=== PATIENT | female | born 1995 | race American Indian/Alaskan Native ===

== ENCOUNTER 2016-11-19 16:18 | Emergency (ER) | payer MEDICAID, OTHER ==
--- NOTE | 2016-11-19 17:00 | OBHP ---
Datetime: 11/19/2016 16:50 IP Adm Impression: , intrauterine ; No Active Labor IP Adm Impression Other: Back Pain IP Admit Plan: Observation/Evaluation; Discharge home Admit Comment, IP Provider: 21yo with IUP at 31+wks presents here today c/o episodes of backpai n. She denies any contractions, VB or LOF. She also denies dysuria or frequency as well as fever or c hills. She gets care from [facility] [place]. [place]- None, FHR- Category 1 , Cx- 0/0/-3 Assessment: IUP at 31wks Backpain Plan: UA Back Exercises advised, Tylenol OTC if severe. D/C home if UA is negatve. F/U with [facility] on Tuesday. Pelvic Type - PN: Adequate Extremities - PN: Normal Abdomen - PN: Normal Lungs - PN: Normal Heart - PN: Normal General - PN: Normal Presentation-Admit: Vertex FHR - Baseline A Provider: 150 Membranes, Provider: Intact Comments, ACOG Physical Exam: Abd; Soft, NT, BS- present Some mild tenderness along the waitline on the right side , No costovertebral angle tenderness. Gestation - Est Wks by US: 31.5 EGA AdmitDate IP: 31.5 Vital Signs Provider: Reviewed IP Chief Complaint: Maternal discomfort NICHD Variability Prov Fetus A: Moderate 6-25bpm NICHD Accel Fetus A IP Provider: 15X15 FHR Category Provider Fetus A: Category I NICHD Decel Fetus A IP Provider: None Dilatation, Provider: 0 Effacement, Provider: 0 Station, Provider: -3 Genitourinary Exam: Normal
[2016-11-19] MEDS ORDERED: Lactated Ringer's 1,000 ML IV ONE (17:09)
[2016-11-19 17:16] LABS: RBC URINE 1 /hpf (0-3); TRANSITIONAL EPITHIAL < 1 /hpf (0-3); URINE BACTERIA RARE (<OCC); URINE BILIRUBIN NEGATIVE (NEGATIVE); URINE BLOOD NEGATIVE (NEGATIVE); URINE COLOR Yellow (YELLOW); URINE GLUCOSE (UA) NORMAL (Normal); URINE KETONE NEGATIVE (NEGATIVE); URINE LEUKOCYTE ESTERASE NEG Leu/uL (Negative); URINE PROTEIN NEGATIVE (NEGATIVE); URINE UROBILINOGEN NORMAL mg/dL (0.2-1.0); WBC URINE 3 /hpf (0-5)
[2016-11-19 17:37] LABS: CHLORIDE 107 mmol/L (98-107); POTASSIUM 3.7 mmol/L (3.6-5.2); SODIUM 138 mmol/L (132-148)
[2016-11-19 17:39] LABS: GFR AFRICAN-AMERICAN > 60
[2016-11-19 17:40] LABS: ALB/GLOB RATIO 1.1 (1.0-2.1); ALKALINE PHOSPHATASE 99 U/L (38-126); ALT/SGPT 16 U/L (9-52); AST/SGOT 21 U/L (14-36); BILIRUBIN,TOTAL 0.5 mg/dL (0.2-1.3); BLOOD UREA NITROGEN 5 mg/dL (7-17); CALCIUM 8.7 mg/dl (8.6-10.4); CARBON DIOXIDE 23 mmol/L (22-30); GLUCOSE,RANDOM 91 mg/dL (65-105); TOTAL PROTEIN 6.9 g/dL (6.3-8.3)
[2016-11-19 18:31] LABS: AMYLASE 107 U/L (30-110)
[2016-11-19 18:44] VITALS: TEMP 99
== END 2016-11-19 18:39 | disposition home or self-care (01) ==
LOC: C.EROB 16:18
DX: O26.893 Other specified pregnancy related conditions, third trimester (principal); M54.9 Dorsalgia, unspecified; Z3A.31 31 weeks gestation of pregnancy
CPT/HCPCS: 80053; 81001; 82150; 83690; 99282; J7120

== ENCOUNTER 2017-02-03 21:33 | Emergency (ER) | payer OTHER ==
[2017-02-03 22:17] VITALS: RESP 18
[2017-02-03] MEDS ORDERED: Sodium Chloride 0.9% 1,000 ML IV ONE (22:18)
--- NOTE | 2017-02-03 22:18 | C.PDOC ---
History Of Present Illness Patient presents with abdominal pain. Pt is 4 weeks post . Was seen at [facility] and was told she has a vaginal infection and was given a course of unknown antibiotics for 10 days. Pt finished the course and still has abdominal discomfort. No fever, chills, nausea or vomiting. Not breast feeding. Time Seen by Provider: 02/03/17 22:18 Chief Complaint (Nursing): Abdominal Pain History Per: Patient History/Exam Limitations: no limitations Onset/Duration Of Symptoms: Days Current Symptoms Are (Timing): Still Present Context: Other Severity: Moderate Pain Scale Rating Of: 4 Location Of Pain/Discomfort: RLQ Radiation Of Pain To:: None Quality Of Discomfort: Dull, Cramping Associated Symptoms: denies: Fever, Chills, Nausea, Vomiting Exacerbating Factors: None Alleviating Factors: None Last Bowel Movement: Today Recent travel outside of the [place]: No Additional History Per: Patient Abnormal Vaginal Bleeding: No Past Medical History Reviewed: Historical Data, Nursing Documentation, Vital Signs Vital Signs: Last Vital Signs Temp 98.4 F 02/04/17 00:10 Pulse 62 02/04/17 00:10 Resp 18 02/04/17 00:10 BP 150/108 H 02/04/17 00:10 Pulse Ox 100 02/04/17 00:10 - Medical History PMH: Pneumonia Family History: States: No Known Family Hx - Social History Hx Tobacco Use: No Hx Alcohol Use: No Hx Substance Use: No - Immunization History Hx Tetanus Toxoid Vaccination: No Hx Influenza Vaccination: No Hx Pneumococcal Vaccination: No Review Of Systems Constitutional: Negative for: Fever, Chills ENT: Negative for: Throat Pain Cardiovascular: Negative for: Chest Pain Respiratory: Negative for: Shortness of Breath Gastrointestinal: Positive for: Abdominal Pain. Negative for: Nausea, Vomiting , Constipation Genitourinary: Negative for: Dysuria Musculoskeletal: Negative for: Back Pain Skin: Negative for: Rash, Lesions Neurological: Negative for: Weakness Psych: Negative for: Anxiety Physical Exam - Physical Exam Appears: Non-toxic Skin: Warm, Dry Head: Normacephalic Eye(s): bilateral: Normal Inspection Oral Mucosa: Moist Neck: Supple Chest: Symmetrical Cardiovascular: Rhythm Regular Respiratory: No Rales, No Rhonchi, No Wheezing Gastrointestinal/Abdominal: Soft, Tenderness (rlq), No Distention, No Guarding, No Rebound Back: No CVA Tenderness Extremity: No Tenderness Extremity: Bilateral: Atraumatic, Normal Color And Temperature Pulses: Left Dorsalis Pedis: Normal, Right Dorsalis Pedis: Normal Neurological/Psych: Oriented x3, Normal Speech, Normal Cognition Gait: Steady ED Course And Treatment - Laboratory Results Result Diagrams: 02/03/17 22:47 02/03/17 22:47 O2 Sat by Pulse Oximetry: 96 Pulse Ox Interpretation: Normal Reevaluation Time: 01:42 Reassessment Condition: Improved Medical Decision Making Medical Decision Making: Upon provider reevaluation patient is feeling better, is medically stable, and requires no further treatment in the ED at this time. Patient will be discharged home with Rx for macrobid . Counseling was provided and all questions were answered regarding diagnosis and need for follow up with dr grey. There is agreement to discharge plan. Return if symptoms persist or worsen. Disposition Counseled Patient/Family Regarding: Studies Performed, Diagnosis, Need For Followup, Rx Given - Disposition Referrals: Jhonatan Shin MD [Medical Doctor] - Disposition: HOME/ ROUTINE Disposition Time: 22:18 Condition: FAIR Prescriptions: Nitrofurantoin Macrocrystals [Macrobid] 1 cap PO BID #14 cap Instructions: Urinary Tract Infection in Women (DC) Forms: [email or web address] (Dominican) - Clinical Impression Clinical Impression: UTI (urinary tract infection)
[2017-02-03] MEDS ORDERED: Sodium Chloride 0.9% 1,000 ML ONE (22:40)
[2017-02-03 22:49] LABS: VENOUS BLOOD GAS PCO2 47 mmHg (40-60); VENOUS BLOOD PH 7.38 (7.32-7.43)
[2017-02-03 22:56] LABS: BASO % 0.5 % (0.0-2.0); EOS # 0.3 K/uL (0.0-0.7); EOS % 3.7 % (0.0-4.0); HEMATOCRIT 34.9 % (34.0-47.0); LYMPH # 2.1 K/uL (1.0-4.3); LYMPH % 29.9 % (20.0-40.0); MEAN CELL VOLUME 83.6 fL (81.0-99.0); MEAN CORPUSCULAR HEMOGLOBIN 26.5 pg (27.0-31.0); MEAN CORPUSCULAR HGB CONC 31.7 g/dL (33.0-37.0); MEAN PLATELET VOLUME 10.2 fL (7.2-11.7); MONO # 0.4 K/uL (0.0-0.8); MONO % 5.2 % (0.0-10.0); RED CELL DISTRIBUTION WIDTH 14.7 % (11.5-14.5)
[2017-02-03 22:59] LABS: CHLORIDE 104 mmol/L (98-107); RBC URINE 2 /hpf (0-3); URINE BILIRUBIN NEGATIVE (NEGATIVE); URINE BLOOD 1+ (NEGATIVE); URINE COLOR Yellow (YELLOW); URINE GLUCOSE (UA) NORMAL (Normal); URINE KETONE NEGATIVE (NEGATIVE); URINE LEUKOCYTE ESTERASE 3+ Leu/uL (Negative); URINE PROTEIN NEGATIVE (NEGATIVE); URINE UROBILINOGEN NORMAL mg/dL (0.2-1.0); WBC URINE 74 /hpf (0-5)
[2017-02-03 23:00] LABS: POTASSIUM 3.6 mmol/L (3.6-5.2); SODIUM 141 mmol/L (132-148)
[2017-02-03 23:01] LABS: GFR AFRICAN-AMERICAN > 60
[2017-02-03 23:02] LABS: ALB/GLOB RATIO 1.2 (1.0-2.1); ALKALINE PHOSPHATASE 75 U/L (38-126); ALT/SGPT 42 U/L (9-52); AST/SGOT 30 U/L (14-36); BILIRUBIN,TOTAL 0.5 mg/dL (0.2-1.3); BLOOD UREA NITROGEN 5 mg/dL (7-17); CALCIUM 8.4 mg/dl (8.6-10.4); CARBON DIOXIDE 25 mmol/L (22-30); GLUCOSE,RANDOM 89 mg/dL (65-105); TOTAL PROTEIN 6.7 g/dL (6.3-8.3); URINE BACTERIA OCC (<OCC)
[2017-02-03] MEDS ORDERED: Piperacillin/Tazobact 3.375 gm 100 ML IVPB STA (23:06)
[2017-02-03 23:07] LABS: INR 1.1
[2017-02-03] MEDS ORDERED: Piperacillin/Tazobact 3.375 gm 100 ML IVPB ONE (23:45)
--- NOTE | 2017-02-03 23:59 | US ---
EXAM: US Pelvis Complete, Transabdominal EXAM DATE/TIME: 02/03/2017 10:18 PM CLINICAL HISTORY: 21 years old, female; Pain; Abdominal pain; Other: Not specified; Additional info: Abd pain, S/P delivery TECHNIQUE: Real-time transabdominal pelvic ultrasound (complete) with image documentation. COMPARISON: There are no prior studies for comparison. FINDINGS: Uterus: Uterus is anteflexed. The uterus measures approximately 8 x 4.9 x 5.5 cm. Endometrium measures approximately 15 mm in width. There is no endometrial blood flow on color Doppler imaging. Right ovary: Right ovary measures approximately 3.2 x 1.2 x 2.6 cm. There are multiple small follicles. There is intraovarian blood flow. Left ovary: Left ovary measures approximately 3.1 x 1.9 x 2.6 cm. There are multiple small follicles. There is intraovarian blood flow. Free fluid: There is no free fluid. Bladder: Bladder is incompletely distended IMPRESSION: Normal sized uterus; mildly prominent endometrium, no retained products of conception identified; no torsion
[2017-02-04 00:12] VITALS: TEMP 98.4
--- NOTE | 2017-02-04 01:21 | CT ---
EXAM: CT Abdomen and Pelvis Without Intravenous Contrast EXAM DATE/TIME: 02/04/2017 12:13 AM CLINICAL HISTORY: 21 years old, female; Pain; Abdominal pain; Patient HX: 4-27-16. Images sent already; Additional info: R flank pain TECHNIQUE: Axial computed tomography images of the abdomen and pelvis without intravenous contrast. All CT scans at this facility use one or more dose reduction techniques, viz.: automated exposure control; ma/kV adjustment per patient size (including targeted exams where dose is matched to indication; i.e. head); or iterative reconstruction technique. Coronal and sagittal reformatted images were created and reviewed. COMPARISON: CT - ABD PELVIS W/O PO OR IV CONT 10/08/2015 10:35:23 AM FINDINGS: Lower thorax: Heart size is normal. There is minimal scarring at the right base. There is no focal consolidation. ABDOMEN: Liver: unremarkable Gallbladder and bile ducts: unremarkable Pancreas: unremarkable Spleen: unremarkable Adrenals: unremarkable Kidneys and ureters: Kidneys and ureters are unremarkable. There are no renal or ureteral stones. Stomach and bowel: Stomach is partially distended. Rotation is normal. There is no small bowel obstruction. There are mildly distended small bowel loops in the left mid abdomen. Terminal ileum is unremarkable. Visualized portion of the is unremarkable. There is moderate stool in the right colon.Colon is incompletely distended which limits evaluation. Appendix: See stomach and bowel PELVIS: Bladder: Bladder is partially distended. Reproductive: Uterus and adnexa are not evaluated. ABDOMEN and PELVIS: Intraperitoneal space: There is no free air.There is no significant fluid. Bones/joints: There are no acute osseous abnormalities Soft tissues: unremarkable Vasculature: Vascular structures are unremarkable. Lymph nodes: There is no pathologic adenopathy IMPRESSION: No renal or ureteral stones or hydronephrosis; no CT findings of appendicitis; slightly limited evaluation of the abdomen and pelvis due to lack of intervenous contrast, possible mild ileus, no obstruction
[2017-02-04 01:55] VITALS: BP 130/85; PULSE 77; O2SAT 100
== END 2017-02-04 01:55 | disposition home or self-care (01) ==
LOC: C.ER 21:33
DX: N39.0 Urinary tract infection, site not specified (principal)
CPT/HCPCS: 74176; 76856; 80053; 81001; 82803; 83690; 85025; 85610; 85730; 87040; 87086; 96361; 96365; 99285; J2543; J7040

== ENCOUNTER 2017-03-01 22:44 | Emergency (ER) | payer OTHER ==
[2017-03-01 23:25] VITALS: TEMP 98.5
--- NOTE | 2017-03-02 00:03 | C.PDOC ---
History Of Present Illness Patient presents to the ED for evaluation of discomfort to her left lower quadrant inguinal area which began earlier today. Patient denies any recent trauma or heavy lifting as well as fever, chills, dysuria, hematuria, vaginal bleeding. Time Seen by Provider: 03/02/17 00:02 Chief Complaint (Nursing): Abdominal Pain History Per: Patient History/Exam Limitations: no limitations Onset/Duration Of Symptoms: Hrs Current Symptoms Are (Timing): Still Present Severity: Mild Pain Scale Rating Of: 3 Location Of Pain/Discomfort: LLQ Radiation Of Pain To:: Other (left inguinal region ) Quality Of Discomfort: "Pain" Associated Symptoms: denies: Fever, Chills, Urinary Symptoms Exacerbating Factors: None Alleviating Factors: None Last Bowel Movement: Today Recent travel outside of the [place]: No Additional History Per: Patient Abnormal Vaginal Bleeding: No Past Medical History Reviewed: Historical Data, Nursing Documentation, Vital Signs Vital Signs: Last Vital Signs Temp 98.5 F 03/01/17 23:20 Pulse 90 03/01/17 23:20 Resp 16 03/01/17 23:20 BP 126/90 03/01/17 23:20 Pulse Ox 100 03/02/17 00:45 - Medical History PMH: Pneumonia Surgical History: No Surg Hx Family History: States: Unknown Family Hx - Social History Hx Tobacco Use: No Hx Alcohol Use: No Hx Substance Use: No - Immunization History Hx Tetanus Toxoid Vaccination: No Hx Influenza Vaccination: No Hx Pneumococcal Vaccination: No Review Of Systems Constitutional: Negative for: Fever, Chills Cardiovascular: Negative for: Chest Pain Respiratory: Negative for: Cough, Shortness of Breath Gastrointestinal: Positive for: Abdominal Pain (LLQ ). Negative for: Nausea, Vomiting Genitourinary: Negative for: Dysuria, Hematuria, Vaginal Bleeding Neurological: Negative for: Weakness, Numbness Physical Exam - Physical Exam Appears: Non-toxic, No Acute Distress Skin: Warm, Dry Head: Normacephalic Eye(s): bilateral: Normal Inspection Oral Mucosa: Moist Neck: Supple Chest: Symmetrical, No Deformity, No Tenderness Cardiovascular: Rhythm Regular, No Murmur Respiratory: No Rales, No Rhonchi, No Wheezing Gastrointestinal/Abdominal: Soft, No Tenderness, No Guarding, No Rebound, Other (left inguinal discomfort on palpation ) Extremity: Normal ROM, Capillary Refill (less than 2 seconds ) Pulses: Left Femoral: Normal, Right Femoral: Normal Neurological/Psych: Oriented x3 Gait: Steady ED Course And Treatment - Laboratory Results Result Diagrams: 03/02/17 00:44 03/02/17 00:44 O2 Sat by Pulse Oximetry: 100 (on RA) Pulse Ox Interpretation: Normal Progress Note: labs ordered and reviewed. Patient received Toradol IVP and IV Fluids. Reevaluation Time: 02:31 Reassessment Condition: Improved Disposition Counseled Patient/Family Regarding: Studies Performed, Diagnosis, Need For Followup, Rx Given - Disposition Referrals: [facility] [Outside] Disposition: HOME/ ROUTINE Disposition Time: 00:03 Condition: FAIR Prescriptions: Naproxen [Naprosyn] 1 tab PO BID PRN #15 tab PRN Reason: Pain Instructions: Groin Pain (ED) Forms: [facility] (Upper Sorbian) - Clinical Impression Clinical Impression: Inguinal strain - Scribe Statement The provider has reviewed the documentation as recorded by the Scribe (Kinza Bolanos) Provider Attestation: All medical record entries made by the Scribe were at my direction and personally dictated by me. I have reviewed the chart and agree that the record accurately reflects my personal performance of the history, physical exam, medical decision making, and the department course for this patient. I have also personally directed, reviewed, and agree with the discharge instructions and disposition.
[2017-03-02 00:09] LABS: RBC URINE < 1 /hpf (0-3); URINE BILIRUBIN NEGATIVE (NEGATIVE); URINE BLOOD NEGATIVE (NEGATIVE); URINE COLOR Yellow (YELLOW); URINE GLUCOSE (UA) NORMAL (Normal); URINE KETONE NEGATIVE (NEGATIVE); URINE LEUKOCYTE ESTERASE TRACE Leu/uL (Negative); URINE PROTEIN NEGATIVE (NEGATIVE); URINE UROBILINOGEN NORMAL mg/dL (0.2-1.0); WBC URINE 2 /hpf (0-5)
[2017-03-02] MEDS ORDERED: Sodium Chloride 0.9% 1,000 ML IV ONE (00:21)
[2017-03-02] MEDS ORDERED: Sodium Chloride 0.9% 1,000 ML ONE (00:43)
[2017-03-02 00:48] LABS: BASO % 0.5 % (0.0-2.0); EOS # 0.3 K/uL (0.0-0.7); EOS % 3.2 % (0.0-4.0); HEMATOCRIT 32.1 % (34.0-47.0); LYMPH # 2.3 K/uL (1.0-4.3); LYMPH % 26.9 % (20.0-40.0); MEAN CELL VOLUME 80.3 fL (81.0-99.0); MEAN CORPUSCULAR HEMOGLOBIN 25.8 pg (27.0-31.0); MEAN CORPUSCULAR HGB CONC 32.1 g/dL (33.0-37.0); MEAN PLATELET VOLUME 10.6 fL (7.2-11.7); MONO # 0.5 K/uL (0.0-0.8); MONO % 5.8 % (0.0-10.0); WHITE BLOOD COUNT 8.5 K/uL (4.8-10.8)
[2017-03-02 00:55] LABS: CHLORIDE 105 mmol/L (98-107)
[2017-03-02 00:56] LABS: POTASSIUM 3.7 mmol/L (3.6-5.2); SODIUM 142 mmol/L (132-148)
[2017-03-02 00:58] LABS: ALB/GLOB RATIO 1.3 (1.0-2.1); ALKALINE PHOSPHATASE 55 U/L (38-126); AST/SGOT 28 U/L (14-36); BILIRUBIN,TOTAL 0.4 mg/dL (0.2-1.3); BLOOD UREA NITROGEN 12 mg/dL (7-17); CARBON DIOXIDE 24 mmol/L (22-30); GFR AFRICAN-AMERICAN > 60; TOTAL PROTEIN 6.6 g/dL (6.3-8.3)
[2017-03-02 00:59] LABS: ALT/SGPT 39 U/L (9-52); CALCIUM 8.8 mg/dl (8.6-10.4); GLUCOSE,RANDOM 86 mg/dL (65-105)
[2017-03-02 02:43] VITALS: BP 116/79; PULSE 86; RESP 18; O2SAT 99
== END 2017-03-02 02:43 | disposition home or self-care (01) ==
LOC: C.ER 22:44
DX: S39.011A Strain of muscle, fascia and tendon of abdomen, initial encounter (principal); X58.XXXA Exposure to other specified factors, initial encounter
CPT/HCPCS: 80053; 81001; 83690; 84703; 85025; 96361; 96374; 99284; J1885; J7040

== ENCOUNTER 2017-03-05 13:47 | Emergency (ER) | payer OTHER ==
[2017-03-05 13:54] VITALS: BP 135/81; PULSE 76; RESP 16; TEMP 97.4; O2SAT 100
[2017-03-05] MEDS ORDERED: Tmp-Smz 800 mg-160 mg DS Tab PO STA (14:23)
--- NOTE | 2017-03-05 14:25 | C.PDOC ---
History Of Present Illness Patient is a 21 y/o female who presents to the ED with complaints of boils forming over the last 2-3 weeks. Patient states it began with boil on the right posterior superior earlobe at junction of scalp, and states development of others inside right nostril and inside mouth. Patient denies fever. No other physical complaints at this time. Time Seen by Provider: 03/05/17 14:03 Chief Complaint (Nursing): Abnormal Skin Integrity History Per: Patient History/Exam Limitations: no limitations Onset/Duration Of Symptoms: Days (2-3 weeks. ) Current Symptoms Are (Timing): Still Present Recent travel outside of the [place]: No Past Medical History Reviewed: Historical Data, Nursing Documentation, Vital Signs Vital Signs: Last Vital Signs Temp 97.4 F L 03/05/17 13:51 Pulse 76 03/05/17 13:51 Resp 16 03/05/17 13:51 BP 135/81 03/05/17 13:51 Pulse Ox 100 03/05/17 17:29 - Medical History PMH: Anemia, Pneumonia Surgical History: No Surg Hx Family History: States: Unknown Family Hx - Social History Hx Tobacco Use: No Hx Alcohol Use: No Hx Substance Use: No - Immunization History Hx Tetanus Toxoid Vaccination: No Hx Influenza Vaccination: No Hx Pneumococcal Vaccination: No Review Of Systems Constitutional: Negative for: Fever Skin: Positive for: Other (boils behind right ear, inside right nostril, and inside mouth. ) Physical Exam - Physical Exam Appears: Well, Non-toxic Skin: Normal Color, Warm, No Rash, Other (1 cm area of swelling and tenderness to the posterior right pinna. No flunctuance or streaking) Head: Atraumatic, Normacephalic Eye(s): bilateral: Normal Inspection, PERRL, EOMI Ear(s): Left: Normal, Right: Other (normal mastoid; mild tenderness at sight of boil.) Nose: No Discharge, Other (questional polyp inside right nostril. ) Oral Mucosa: Moist, Other (negative for polyp. ) Throat: No Erythema, No Exudate Neck: Normal ROM, Supple Lymphatic: Normal Exam Chest: Symmetrical, No Tenderness Cardiovascular: Rhythm Regular Respiratory: Normal Breath Sounds Neurological/Psych: Oriented x3, Normal Speech, Normal Cranial Nerves, Normal Motor, Normal Sensation Gait: Steady ED Course And Treatment O2 Sat by Pulse Oximetry: 100 (room air) Pulse Ox Interpretation: Normal Medical Decision Making Medical Decision Making: Plan: Bactrim administered. Patient was instructed that this may be an early abscess and to apply warm compresses to the region 4-5 times per day Disposition - Disposition Referrals: Jewel Fung MD [Staff Provider] - Disposition: HOME/ ROUTINE Disposition Time: 14:27 Condition: GOOD Additional Instructions: Apply warm compresses to the region 4-5 times per day. Return if worsened. Prescriptions: Cephalexin [cephalexin] 500 mg PO BID #14 cap Ibuprofen [Motrin] 1 tab PO TID PRN #30 tab PRN Reason: Pain Sulfamethoxazole/Trimethoprim [Bactrim DS 800 mg-160 mg] 1 tab PO BID #14 tab Instructions: Abscess (GEN) Forms: [facility] (Vietnamese) - Clinical Impression Clinical Impression: Abscess, earlobe, Polyp, nasal - Scribe Statement The provider has reviewed the documentation as recorded by the Scribe Felicitas Barbour All medical record entries made by the Scribe were at my direction and personally dictated by me. I have reviewed the chart and agree that the record accurately reflects my personal performance of the history, physical exam, medical decision making, and the department course for this patient. I have also personally directed, reviewed, and agree with the discharge instructions and disposition.
[2017-03-05] MEDS ORDERED: Tmp-Smz 800 mg-160 mg DS Tab ONE (14:26)
== END 2017-03-05 15:03 | disposition home or self-care (01) ==
LOC: C.ER 13:47
DX: H60.01 Abscess of right external ear (principal); J33.9 Nasal polyp, unspecified

== ENCOUNTER 2017-03-25 10:29 | Emergency (ER) | payer OTHER ==
[2017-03-25 10:37] VITALS: TEMP 97.9
[2017-03-25 12:11] LABS: RBC URINE < 1 /hpf (0-3); URINE BACTERIA RARE (<OCC); URINE BILIRUBIN NEGATIVE (NEGATIVE); URINE BLOOD NEGATIVE (NEGATIVE); URINE COLOR Straw (YELLOW); URINE GLUCOSE (UA) NORMAL (Normal); URINE KETONE NEGATIVE (NEGATIVE); URINE LEUKOCYTE ESTERASE 2+ Leu/uL (Negative); URINE PROTEIN NEGATIVE (NEGATIVE); URINE UROBILINOGEN NORMAL mg/dL (0.2-1.0); WBC URINE 3 /hpf (0-5)
--- NOTE | 2017-03-25 12:25 | C.PDOC ---
History Of Present Illness 21 yo female come in for evaluation of rash to B/L inner thighs gradually developed for past few days. Pt reports, mild pain associated with rash. Otherwise, pt denies fever, chills, recent illness, headache, dizziness, sore throat, cough, CP, SOB, dyspnea, abd. pain, N/V/D, UTi sx, vaginal irritation or discharges. Pt is 2 months post-, denies recent unprotected sexual activity. Ambulate to Ed for evaluation, not in any apparent distress. Time Seen by Provider: 03/25/17 11:28 Chief Complaint (Nursing): Abnormal Skin Integrity History Per: Patient Past Medical History Reviewed: Historical Data, Nursing Documentation, Vital Signs Vital Signs: Last Vital Signs Temp 97.9 F 03/25/17 10:33 Pulse 80 03/25/17 10:33 Resp 18 03/25/17 10:33 BP 132/81 03/25/17 10:33 Pulse Ox 100 03/25/17 10:33 - Medical History PMH: Anemia, Pneumonia Family History: States: No Known Family Hx - Social History Hx Tobacco Use: No Hx Alcohol Use: No Hx Substance Use: No - Immunization History Hx Tetanus Toxoid Vaccination: No Hx Influenza Vaccination: No Hx Pneumococcal Vaccination: No Review Of Systems Except As Marked, All Systems Reviewed And Found Negative. Constitutional: Negative for: Fever, Chills ENT: Negative for: Throat Pain Cardiovascular: Negative for: Chest Pain Respiratory: Negative for: Cough, Shortness of Breath, Wheezing Gastrointestinal: Negative for: Nausea, Vomiting, Abdominal Pain Genitourinary: Negative for: Dysuria, Frequency, Vaginal Discharge, Vaginal Bleeding Musculoskeletal: Negative for: Neck Pain, Back Pain Skin: Positive for: Rash Neurological: Negative for: Weakness, Numbness, Altered Mental Status, Headache , Dizziness Physical Exam - Physical Exam Appears: Well, Non-toxic, No Acute Distress Skin: Normal Color, Warm, Dry Head: Normacephalic Eye(s): bilateral: PERRL Nose: No Flaring, No Discharge Oral Mucosa: Moist Throat: No Erythema, No Exudate, No Drooling Neck: Supple Cardiovascular: Rhythm Regular Respiratory: No Decreased Breath Sounds, No Accessory Muscle Use, No Stridor, No Wheezing Gastrointestinal/Abdominal: Soft, No Tenderness, No Distention, No Guarding Back: No CVA Tenderness Pelvic: No Vaginal Bleeding, No Vaginal Discharge, No Cervical Motion Tenderness , No Adnexal Tenderness, Other (SCATTERED UMBILICATED LESION TO B/L INNER THIGHS ) Extremity: No Pedal Edema Neurological/Psych: Oriented x3, Normal Speech, Normal Motor, Normal Sensation, Normal Reflexes ED Course And Treatment O2 Sat by Pulse Oximetry: 100 Pulse Ox Interpretation: Normal Progress Note: On re-evauation, pt is afebrile, hemodynamicaly stable. Non- toxic. ENT: no acute finidngs. ABd: benign, (-) guarding, (-) rebound. : small umbilicated lesions noted to B/L inner thighs likely c/w molluscum contag. Neuorlogicaly intact. UA results review and appears normal. Pt was advised on course of ds. ref. to F/u with [facility] 1-2 days for re-eavluation and further tx as indicated. Disposition Counseled Patient/Family Regarding: Studies Performed, Diagnosis, Need For Followup - Disposition [facility] Disposition: HOME/ ROUTINE Disposition Time: 12:01 Condition: STABLE Additional Instructions: TAKE IBUPROFEN NEED FOR PAIN FOLLOW UP WITH [facility] IN 2-3 DAYS FOR RE-EVALUATION. RETURN TO ED IF ANY WORSENING OR NEW CHANGES. Instructions: Molluscum Contagiosum (ED) - Clinical Impression Clinical Impression: Molluscum contagiosum
[2017-03-25 12:40] VITALS: BP 124/72; PULSE 71; RESP 17; O2SAT 99
== END 2017-03-25 12:41 | disposition home or self-care (01) ==
LOC: C.ER 10:29
DX: B08.1 Molluscum contagiosum (principal)

== ENCOUNTER 2017-06-13 14:44 | Emergency (ER) | payer MEDICAID, OTHER ==
[2017-06-13 14:50] VITALS: RESP 18
[2017-06-13] MEDS ORDERED: Sodium Chloride 0.9% 1,000 ML IV STA (15:11)
--- NOTE | 2017-06-13 15:14 | C.PDOC ---
History Of Present Illness 21 y/o F c PMHx anemia, scoliosis p/w diffuse abdominal pain with NBNB vomiting since this morning. Patient states she had similar symptoms when she found out she was with her son and came to check if she is again. LMP 12 /. No bleeding. Denies diarrhea, dyspnea, rash, fever, dysuria. Time Seen by Provider: 06/13/17 15:01 Chief Complaint (Nursing): Abdominal Pain Past Medical History Vital Signs: Last Vital Signs Temp 99.2 F 06/13/17 14:47 Pulse 90 06/13/17 14:47 Resp 18 06/13/17 14:47 BP 136/89 06/13/17 14:47 Pulse Ox 99 06/13/17 15:16 - Medical History PMH: Anemia, Pneumonia Family History: States: No Known Family Hx - Social History Hx Tobacco Use: No Hx Alcohol Use: Yes Hx Substance Use: No - Immunization History Hx Tetanus Toxoid Vaccination: No Hx Influenza Vaccination: No Hx Pneumococcal Vaccination: No Review Of Systems Except As Marked, All Systems Reviewed And Found Negative. Constitutional: Negative for: Fever Cardiovascular: Negative for: Chest Pain Physical Exam - Physical Exam Additional Physical Exam Comments: Constitutional: No acute distress. Head: Normocephalic. Atraumatic. Eyes: PERRL. ENT: Moist mucous membranes. Neck: Supple. Cardiovascular: Regular rate. Radial pulse 2+ bilaterally. Chest: No tenderness. Respiratory: Clear to auscultation bilaterally. GI: Soft. Nontender. Nondistended. Back: No CVA tenderness. Musculoskeletal: No tenderness to extremities. Skin: No rash. Neurologic: Alert, no focal deficit. ED Course And Treatment - Laboratory Results Result Diagrams: 06/13/17 15:39 06/13/17 15:39 O2 Sat by Pulse Oximetry: 99 Medical Decision Making Medical Decision Making: Patient with no vomiting in ED. Abdomen remains soft. Labs unremarkable. Will discharge home, instructed to return to ED for worsening pain, vomiting, or specific location of pain. Disposition - Disposition Disposition: HOME/ ROUTINE Disposition Time: 18:13 Condition: STABLE Prescriptions: Ondansetron ODT [Zofran ODT] 4 mg PO Q8 #12 odt Instructions: Acute Nausea and Vomiting (ED), Abdominal Pain (ED) Forms: [employer] (Macedonian) - Clinical Impression Clinical Impression: Vomiting, Abdominal pain
[2017-06-13] MEDS ORDERED: Sodium Chloride 0.9% 1,000 ML ONE (15:27)
[2017-06-13 15:53] LABS: BASO % 0.2 % (0.0-2.0); EOS # 0.2 K/uL (0.0-0.7); EOS % 1.7 % (0.0-4.0); HEMOGLOBIN 12.5 g/dL (11.0-16.0); LYMPH # 0.9 K/uL (1.0-4.3); LYMPH % 9.5 % (20.0-40.0); MEAN CELL VOLUME 79.5 fL (81.0-99.0); MEAN CORPUSCULAR HEMOGLOBIN 26.6 pg (27.0-31.0); MEAN CORPUSCULAR HGB CONC 33.4 g/dL (33.0-37.0); MONO # 0.5 K/uL (0.0-0.8); MONO % 4.8 % (0.0-10.0); NEUT # 7.9 K/uL (1.8-7.0); NEUT % 83.8 % (50.0-75.0); NRBC % 0.1 % (0.0-2.0); PLATELET COUNT 179 K/uL (130-400); RBC 4.71 Mil/uL (3.80-5.20); RED CELL DISTRIBUTION WIDTH 17.4 % (11.5-14.5); WHITE BLOOD COUNT 9.4 K/uL (4.8-10.8)
[2017-06-13 16:13] LABS: ALB/GLOB RATIO 1.2 (1.0-2.1); ALBUMIN 4.2 g/dL (3.5-5.0); ALT/SGPT 22 U/L (9-52); AST/SGOT 18 U/L (14-36); BLOOD UREA NITROGEN 12 mg/dL (7-17); CALCIUM 8.1 mg/dl (8.6-10.4); GFR AFRICAN-AMERICAN > 60; GFR NON-AFRICAN AMERICAN > 60; LIPASE 78 U/L (23-300)
[2017-06-13 17:14] LABS: SQUAMOUS EPITHIAL 3 /hpf (0-5); URINE BILIRUBIN NEGATIVE (NEGATIVE); URINE BLOOD NEGATIVE (NEGATIVE); URINE CLARITY Clear (Clear); URINE COLOR Straw (YELLOW); URINE GLUCOSE (UA) NORMAL (Normal); URINE LEUKOCYTE ESTERASE NEG Leu/uL (Negative); URINE NITRATE NEGATIVE (NEGATIVE); URINE PROTEIN NEGATIVE (NEGATIVE); URINE UROBILINOGEN NORMAL mg/dL (0.2-1.0)
[2017-06-13 17:24] LABS: BANDS 5 % (0-2); EOSINOPHIL 2 % (0-4); LYMPHOCYTE 10 % (20-40); MICROCYTOSIS SLIGHT; MONOCYTE 7 % (0-10); NEUTROPHIL 76 % (50-75); TOTAL CELLS COUNTED 100
[2017-06-13 17:25] LABS: GIANT PLATELETS PRESENT; HYPOCHROMIC SLIGHT; LARGE PLATELETS PRESENT
[2017-06-13 17:33] LABS: PLATELET ESTIMATE NORMAL (NORMAL)
[2017-06-13 18:28] VITALS: BP 128/70; PULSE 72; TEMP 99; O2SAT 98
== END 2017-06-13 18:35 | disposition home or self-care (01) ==
LOC: C.ER 14:44
DX: R11.10 Vomiting, unspecified (principal); R10.9 Unspecified abdominal pain
CPT/HCPCS: 80053; 81001; 83690; 84702; 85025; 96361; 96374; 99285; J2405; J7040

== ENCOUNTER 2017-10-31 10:25 | Emergency (ER) | payer MEDICAID ==
[2017-10-31 10:53] VITALS: RESP 18
--- NOTE | 2017-10-31 11:19 | C.PDOC ---
History Of Present Illness 22 y/o female, , presents to the ER complaining of cramping pelvic pain with vaginal spotting which has been present for the 2 weeks. Patient states that she missed her most recent period and her LMP was on 09/17/17. Patient denies having vomiting, diarrhea, dysuria, and fever. Time Seen by Provider: 10/31/17 10:48 Chief Complaint (Nursing): Abdominal Pain History Per: Patient History/Exam Limitations: no limitations Onset/Duration Of Symptoms: Days Current Symptoms Are (Timing): Still Present Severity: Moderate Past Medical History Reviewed: Historical Data, Nursing Documentation, Vital Signs Vital Signs: Last Vital Signs Temp 99.2 F 10/31/17 15:59 Pulse 92 H 10/31/17 15:59 Resp 18 10/31/17 15:59 BP 128/78 10/31/17 15:59 Pulse Ox 98 10/31/17 17:50 - Medical History PMH: Anemia, Pneumonia Surgical History: No Surg Hx Family History: States: No Known Family Hx - Social History Hx Tobacco Use: No Hx Alcohol Use: Yes Hx Substance Use: Yes - Immunization History Hx Tetanus Toxoid Vaccination: No Hx Influenza Vaccination: No Hx Pneumococcal Vaccination: No Review Of Systems Except As Marked, All Systems Reviewed And Found Negative. Constitutional: Negative for: Fever, Chills Gastrointestinal: Negative for: Vomiting, Diarrhea Genitourinary: Positive for: Pelvic Pain. Negative for: Dysuria Physical Exam - Physical Exam Appears: Non-toxic, No Acute Distress, Other (comfortable) Skin: Normal Color, Warm, Dry Head: Atraumatic, Normacephalic Eye(s): bilateral: Normal Inspection Nose: Normal Oral Mucosa: Moist Neck: Supple Chest: Symmetrical Cardiovascular: Rhythm Regular Respiratory: Normal Breath Sounds, No Rales, No Rhonchi, No Wheezing Gastrointestinal/Abdominal: Soft, Tenderness (mild suprapubic tenderness), No Guarding, No Rebound, Other ((-) McBurney's) Neurological/Psych: Oriented x3, Normal Speech ED Course And Treatment - Laboratory Results Result Diagrams: 10/31/17 11:50 10/31/17 11:50 O2 Sat by Pulse Oximetry: 98 (RA) Pulse Ox Interpretation: Normal - CT Scan/US US- OB Pelvic Other Rad Studies (CT/US): Read By Radiologist, Radiology Report Reviewed CT/US Interpretation: PROCEDURE: OB Pelvic Ultrasound. HISTORY: pelvic pain and . COMPARISON: No relevant priors. FINDINGS: UTERUS: Gestational sac: Single intrauterine gestation. Measures 0.5 cm, out of range. Yolk sac: Possibly seen. pole: Not yet identified. Paige-gestational hemorrhage: None. Uterus measures 9.3 x 4.8 x 5.5 cm. Anteverted. Normal in size and appearance. CERVIX: Measures 3.1 cm. Long and closed. No cervical abnormality seen. RIGHT OVARY: Measures 4.2 x 2.5 x 4.0 cm. Corpus luteum measuring 2.0 x 1.4 x 2.0. Normal flow. LEFT OVARY: Measures 2.6 x 1.3 x 2.2 cm. No solid mass. Normal flow. FREE FLUID: None. OTHER FINDINGS: None. IMPRESSION: Small intrauterine cystic structure, likely gestational sac. Yolk sac and pole not yet definitively identified. Findings may represent early normal/ abnormal with ectopic not excluded. Close clinical follow-up with serial pelvic sonography and serum beta HCG levels is recommended. Progress Note: US- Obstetrics, Beta- HCG Qual., and UA ordered and reviewed. HCG is positive. Patient has been treated with Rhogam because she has B- blood type. Patient has been discharged and instructed to follow up with [facility] in 1 week and return to the ER tomorrow for repeat Beta and US. Disposition Counseled Patient/Family Regarding: Studies Performed, Diagnosis, Need For Followup - Disposition Referrals: [facility] [Outside] [facility] [Outside] [facility] [Outside] Disposition: HOME/ ROUTINE Disposition Time: 14:30 Condition: STABLE Additional Instructions: FOLLOW UP WITH [facility] WITHIN 1 WEEK RETURN TO ER IN 48 HOURS FOR REPEAT BETA (HORMONE LEVEL) AND ULTRASOUND Prescriptions: Multivit/Folic Acid/I [ Plus] 1 tab PO DAILY #30 tab Instructions: Care Forms: [facility] [employer] (Kittitian) Print Language: CUBAN - Clinical Impression Clinical Impression: - Scribe Statement The provider has reviewed the documentation as recorded by the Scribe Venus Curiel Provider Attestation: All medical record entries made by the Scribe were at my direction and personally dictated by me. I have reviewed the chart and agree that the record accurately reflects my personal performance of the history, physical exam, medical decision making, and the department course for this patient. I have also personally directed, reviewed, and agree with the discharge instructions and disposition.
[2017-10-31 11:24] LABS: HCG,QUALITATIVE URINE POSITIVE (NEGATIVE)
[2017-10-31 11:37] LABS: SQUAMOUS EPITHIAL 7 /hpf (0-5); URINE BACTERIA RARE (<OCC); URINE BILIRUBIN NEGATIVE (NEGATIVE); URINE BLOOD NEGATIVE (NEGATIVE); URINE CLARITY Hazy (Clear); URINE COLOR Yellow (YELLOW); URINE GLUCOSE (UA) NORMAL (Normal); URINE LEUKOCYTE ESTERASE 2+ Leu/uL (Negative); URINE PROTEIN NEGATIVE (NEGATIVE); URINE UROBILINOGEN NORMAL mg/dL (0.2-1.0)
[2017-10-31 11:58] LABS: BASO % 0.4 % (0.0-2.0); EOS # 0.2 K/uL (0.0-0.7); EOS % 2.1 % (0.0-4.0); HEMOGLOBIN 11.3 g/dL (11.0-16.0); LYMPH # 1.9 K/uL (1.0-4.3); LYMPH % 21.4 % (20.0-40.0); MEAN CORPUSCULAR HEMOGLOBIN 27.6 pg (27.0-31.0); MEAN CORPUSCULAR HGB CONC 33.6 g/dL (33.0-37.0); MEAN PLATELET VOLUME 10.2 fL (7.2-11.7); MONO # 0.4 K/uL (0.0-0.8); MONO % 4.6 % (0.0-10.0); NEUT # 6.3 K/uL (1.8-7.0); NEUT % 71.5 % (50.0-75.0); RBC 4.08 Mil/uL (3.80-5.20); RED CELL DISTRIBUTION WIDTH 16.2 % (11.5-14.5); WHITE BLOOD COUNT 8.8 K/uL (4.8-10.8)
[2017-10-31 12:14] LABS: ALB/GLOB RATIO 1.2 (1.0-2.1); ALBUMIN 3.9 g/dL (3.5-5.0); ALT/SGPT 23 U/L (9-52); AST/SGOT 24 U/L (14-36); BLOOD UREA NITROGEN 8 mg/dL (7-17); CALCIUM 8.6 mg/dl (8.6-10.4); GFR AFRICAN-AMERICAN > 60; GFR NON-AFRICAN AMERICAN > 60
--- NOTE | 2017-10-31 13:23 | US ---
PROCEDURE: OB Pelvic Ultrasound HISTORY: pelvic pain and COMPARISON: No relevant priors. FINDINGS: UTERUS: Gestational sac: Single intrauterine gestation. Measures 0.5 cm, out of range Yolk sac: Possibly seen pole: Not yet identified Paige-gestational hemorrhage: None. Uterus measures 9.3 x 4.8 x 5.5 cm. Anteverted. Normal in size and appearance. CERVIX: Measures 3.1 cm. Long and closed. No cervical abnormality seen. RIGHT OVARY: Measures 4.2 x 2.5 x 4.0 cm. Corpus luteum measuring 2.0 x 1.4 x 2.0. Normal flow. LEFT OVARY: Measures 2.6 x 1.3 x 2.2 cm. No solid mass. Normal flow. FREE FLUID: None. OTHER FINDINGS: None. IMPRESSION: Small intrauterine cystic structure, likely gestational sac. Yolk sac and pole not yet definitively identified. Findings may represent early normal/ abnormal with ectopic not excluded. Close clinical follow-up with serial pelvic sonography and serum beta HCG levels is recommended.
[2017-10-31 16:00] VITALS: BP 128/78; PULSE 92; TEMP 99.2
[2017-10-31 16:39] VITALS: O2SAT 98
== END 2017-10-31 16:12 | disposition home or self-care (01) ==
LOC: C.ER 10:25
DX: O26.891 Other specified pregnancy related conditions, first trimester (principal); Z3A.00 Weeks of gestation of pregnancy not specified
CPT/HCPCS: 76805; 76817; 80053; 81001; 84702; 84703; 85025; 86850; 86900; 96372; 99284; J2792

== ENCOUNTER 2017-11-02 12:12 | Emergency (ER) | payer MEDICAID ==
[2017-11-02 12:18] VITALS: O2SAT 97
--- NOTE | 2017-11-02 13:23 | C.PDOC ---
History Of Present Illness 22 y/o female , LNMP 09/17/17, presents to ED for scheduled repeat Beta after being seen at ED 2 days ago. Patient reports she continues to have vaginal spotting. Otherwise, pt denies fever, chills, abd. pain, N/V, UTI sx, vaginal irritation, hematuria, denies any other complaints at this time. Ambulate to Ed for evaluation, not in any apparent distress. Records review from 10/31/17, beta quant 4576.6 Time Seen by Provider: 11/02/17 12:36 Chief Complaint (Nursing): Medical Clearance History Per: Patient History/Exam Limitations: no limitations Onset/Duration Of Symptoms: Days Current Symptoms Are (Timing): Still Present Past Medical History Reviewed: Historical Data, Nursing Documentation, Vital Signs Vital Signs: Last Vital Signs Temp 99 F 11/02/17 12:17 Pulse 99 H 11/02/17 12:17 Resp 20 11/02/17 12:17 BP 101/70 11/02/17 12:17 Pulse Ox 97 11/02/17 13:34 - Medical History PMH: Anemia, Pneumonia Surgical History: No Surg Hx Family History: States: No Known Family Hx - Social History Hx Tobacco Use: No Hx Alcohol Use: Yes Hx Substance Use: Yes - Immunization History Hx Tetanus Toxoid Vaccination: No Hx Influenza Vaccination: No Hx Pneumococcal Vaccination: No Review Of Systems Constitutional: Negative for: Fever, Chills Gastrointestinal: Negative for: Nausea, Vomiting, Abdominal Pain Genitourinary: Positive for: Vaginal Bleeding. Negative for: Dysuria Musculoskeletal: Negative for: Back Pain Skin: Negative for: Rash Physical Exam - Physical Exam Appears: Well, Non-toxic, No Acute Distress Skin: Warm, Dry, No Rash Head: Normacephalic Eye(s): bilateral: PERRL Ear(s): Bilateral: Normal Nose: No Flaring, No Discharge Oral Mucosa: Moist Tongue: No Normal Appearing Lips: No Normal Appearing Throat: No Erythema, No Drooling Neck: Trachea Midline, Supple Cardiovascular: Rhythm Regular, No Murmur, No JVD Respiratory: No Decreased Breath Sounds, No Accessory Muscle Use, No Rales, No Rhonchi, No Stridor, No Wheezing Gastrointestinal/Abdominal: Soft, No Tenderness, No Distention, No Guarding, No Rebound Back: No CVA Tenderness Extremity: Normal ROM, No Pedal Edema, No Deformity, No Swelling Neurological/Psych: Oriented x3, Normal Speech ED Course And Treatment O2 Sat by Pulse Oximetry: 97 (RA) Pulse Ox Interpretation: Normal Progress Note: On re-eval, pt is afebrile, hemodynamicaly stable. Non-toxic. Tolerate Po well in ED. ENT: no acute findings, uvula midline, no edema. Neck : Supple, (-) meningeal sign. Lungs: CTA B/L, BS equal B/L. CVS: (+)S1S2, reg. Abd: soft, NT/ND, (-) guarding, (-) rebound. back: (-) CVA tenderness. Beta quant today appears doubled to compare from 10/31/17. UA results review from 10/31/17 (+) leuko, WBC. US results review from 10/31/17, early . Results review and discussed with pt. Pt has clinical findings c/w threatened , UTI. Pt advised and ref. to f/u with OB in 2-3 days for re-eval. return if any new changes. Disposition Counseled Patient/Family Regarding: Studies Performed, Diagnosis, Need For Followup, Rx Given - Disposition [facility] [Outside] Disposition: HOME/ ROUTINE Disposition Time: 13:28 Condition: STABLE Additional Instructions: Encourage fluids Take medication as prescribed Follow up with OB in 2-3 days for re-evaluation and possible US return to ED at any time if any worsening or new changes. Prescriptions: Nitrofurantoin Macrocrystals [Macrobid] 1 cap PO BID #14 cap Instructions: Urinary Tract Infections in Adults, Threatened Miscarriage Forms: [employer] (Bulgarian) - Clinical Impression Clinical Impression: UTI (urinary tract infection), Threatened - PA / HAZARDOUS MATERIALS HANDLER / Resident Statement MD/DO has reviewed & agrees with the documentation as recorded. - Scribe Statement The provider has reviewed the documentation as recorded by the Diegoibbartolome Hsu All medical record entries made by the Scribe were at my direction and personally dictated by me. I have reviewed the chart and agree that the record accurately reflects my personal performance of the history, physical exam, medical decision making, and the department course for this patient. I have also personally directed, reviewed, and agree with the discharge instructions and disposition.
[2017-11-02 13:46] VITALS: BP 106/68; PULSE 88; RESP 18; TEMP 98.8
== END 2017-11-02 13:46 | disposition home or self-care (01) ==
LOC: C.ER 12:12
DX: O20.0 Threatened abortion (principal); O23.40 Unspecified infection of urinary tract in pregnancy, unspecified trimester

== ENCOUNTER 2018-01-07 00:55 | Emergency (ER) | payer MEDICAID ==
[2018-01-07 01:00] VITALS: O2SAT 100
[2018-01-07 01:09] VITALS: RESP 14
--- NOTE | 2018-01-07 01:26 | C.PDOC ---
History Of Present Illness 22 year old female w/PMHx of sickle cell train, anemia, LNMP 09/2017, , presents to the ER for evaluation of few episodes of non-bilious vomiting and lower abdominal cramping that began tonight, associated with one time vaginal spotting early today. Patient admits, has not taken any care. Admits, similar sx in past for " since was diagnosed wit ". Otherwise, pt denies fever, chill, recent illness, headache, dizziness, weakness, SOB, chest pain, palpitation, hematemesis, diarrhea, back pain, UTI sx. Ambulate to Ed for evaluation, appears in pain. Time Seen by Provider: 01/07/18 00:59 Chief Complaint (Nursing): Abdominal Pain History Per: Patient History/Exam Limitations: no limitations Onset/Duration Of Symptoms: Hrs, Sudden Onset Current Symptoms Are (Timing): Still Present Location Of Pain/Discomfort: LLQ Radiation Of Pain To:: None Quality Of Discomfort: Cramping Associated Symptoms: Nausea, Vomiting. denies: Fever, Chills, Chest Pain, Other (SOB) Exacerbating Factors: None Alleviating Factors: None Recent travel outside of the [place]: No Abnormal Vaginal Bleeding: Yes Last Menstral Period: Unknown : 2 Para: 1 Past Medical History Reviewed: Historical Data, Nursing Documentation, Vital Signs Vital Signs: Last Vital Signs Temp 96.8 F L 01/07/18 04:34 Pulse 80 01/07/18 05:30 Resp 14 01/07/18 05:30 BP 112/75 01/07/18 05:30 Pulse Ox 100 01/07/18 05:30 - Medical History PMH: Anemia, Pneumonia Family History: States: Unknown Family Hx - Social History Hx Tobacco Use: No Hx Alcohol Use: Yes Hx Substance Use: Yes - Immunization History Hx Tetanus Toxoid Vaccination: No Hx Influenza Vaccination: No Hx Pneumococcal Vaccination: No Review Of Systems Constitutional: Negative for: Fever, Chills Cardiovascular: Negative for: Chest Pain, Palpitations Respiratory: Negative for: Cough, Shortness of Breath Gastrointestinal: Positive for: Nausea, Vomiting, Abdominal Pain Genitourinary: Positive for: Other (Vaginal spotting). Negative for: Dysuria, Hematuria Physical Exam - Physical Exam Appears: Well, Non-toxic, Other (In pain) Skin: Normal Color, Warm, Dry Head: Normacephalic Eye(s): bilateral: PERRL Nose: No Flaring, No Discharge Oral Mucosa: Moist Tongue: Normal Appearing Lips: Normal Appearing Throat: No Erythema, No Drooling Neck: Trachea Midline Cardiovascular: Rhythm Regular, No Murmur, No JVD Respiratory: No Decreased Breath Sounds, No Accessory Muscle Use, No Rales, No Rhonchi, No Stridor, No Wheezing Gastrointestinal/Abdominal: Soft (Gravid), Tenderness (Mild LLQ), No Guarding, No Rebound Back: No CVA Tenderness Extremity: Normal ROM, No Pedal Edema, No Swelling Neurological/Psych: Oriented x3, Normal Speech ED Course And Treatment - Laboratory Results Result Diagrams: 01/07/18 02:04 01/07/18 02:04 Lab Interpretation: No Acute Changes Urine POC: Positive O2 Sat by Pulse Oximetry: 100 (Room air) Pulse Ox Interpretation: Normal - CT Scan/US OB US Other Rad Studies (CT/US): Radiology Report Reviewed CT/US Interpretation: prelim reading by tech: (+) IUP, GS and YS seen, ovaries normal B/L flow Progress Note: Pt was OBS in ED for 3 hours and remained stable. On re-eval, pt is afebrile, hemodynamicaly stable. Ambulatory in ED with stable gait. PulsEOx 96% RA. Head: AT/NC, ENT: no acute findings. Neck: Supple, (-) midline tenderness. Lungs: CTA B/L, BS dequal B/L. CVS: (+)S1S2, reg. Abd: benign. Neurologicaly intact. Blood work review and appears baseline. US results (+) IUP, likely early, no FHR or motion. normal blood flow B/L ovaries. beta quant [id number] c/w early . Blood type B (-), RhoGam administered. UA (+) WBC. Pt has clinical findings c/w threatened miscarriage , UTI in . Pt advised. ref. to f/u with OB or ED in 2 days for re- evaluation. return to ED if any worsening or new changes. Disposition Counseled Patient/Family Regarding: Studies Performed, Diagnosis, Need For Followup, Rx Given - Disposition [facility] [Outside] Disposition: HOME/ ROUTINE Disposition Time: 03:43 Condition: STABLE Additional Instructions: "Pelvic rest", avoid heavy lifting, sexual activity for 1 week Follow up with OB or return to ED in 2 days to repeat beta quant. return to ED at any time if any worsening or new changes. Prescriptions: Nitrofurantoin Macrocrystals [Macrobid] 1 cap PO BID #14 cap Instructions: Urinary Tract Infections in Adults, Threatened Miscarriage Forms: [employer] (Solomon Islander) - Clinical Impression Clinical Impression: Threatened , UTI in - PA / CLINICAL LABORATORY ASSISTANT / Resident Statement MD/DO has reviewed & agrees with the documentation as recorded. - Scribe Statement The provider has reviewed the documentation as recorded by the Scribe Chico Quiroga All medical record entries made by the Diegoibbartolome were at my direction and personally dictated by me. I have reviewed the chart and agree that the record accurately reflects my personal performance of the history, physical exam, medical decision making, and the department course for this patient. I have also personally directed, reviewed, and agree with the discharge instructions and disposition.
[2018-01-07] MEDS ORDERED: Sodium Chloride 0.9% 1,000 ML IV ONE (01:43)
[2018-01-07 02:08] LABS: BASO % 0.4 % (0.0-2.0); EOS # 0.2 K/uL (0.0-0.7); EOS % 2.3 % (0.0-4.0); HEMOGLOBIN 10.7 g/dL (11.0-16.0); LYMPH # 1.5 K/uL (1.0-4.3); LYMPH % 15.5 % (20.0-40.0); MEAN CELL VOLUME 81.8 fL (81.0-99.0); MEAN CORPUSCULAR HEMOGLOBIN 28.4 pg (27.0-31.0); MEAN CORPUSCULAR HGB CONC 34.8 g/dL (33.0-37.0); MEAN PLATELET VOLUME 10.1 fL (7.2-11.7); MONO # 0.6 K/uL (0.0-0.8); MONO % 5.6 % (0.0-10.0); NEUT # 7.5 K/uL (1.8-7.0); NEUT % 76.2 % (50.0-75.0); RBC 3.76 Mil/uL (3.80-5.20); RED CELL DISTRIBUTION WIDTH 13.9 % (11.5-14.5); WHITE BLOOD COUNT 9.9 K/uL (4.8-10.8)
[2018-01-07 02:16] LABS: INR 1.2; PROTHROMBIN TIME 13.2 SECONDS (9.7-12.2)
[2018-01-07 02:52] LABS: BLOOD UREA NITROGEN 4 mg/dL (7-17); CALCIUM 8.4 mg/dl (8.6-10.4); GFR AFRICAN-AMERICAN > 60; GFR NON-AFRICAN AMERICAN > 60
[2018-01-07 04:36] VITALS: TEMP 96.8
[2018-01-07 05:12] LABS: SQUAMOUS EPITHIAL 10 /hpf (0-5); URINE BACTERIA RARE (<OCC); URINE BILIRUBIN NEGATIVE (NEGATIVE); URINE BLOOD NEGATIVE (NEGATIVE); URINE CLARITY Hazy (Clear); URINE COLOR Yellow (YELLOW); URINE GLUCOSE (UA) NORMAL (Normal); URINE LEUKOCYTE ESTERASE 2+ Leu/uL (Negative); URINE PROTEIN NEGATIVE (NEGATIVE)
[2018-01-07 05:19] LABS: HCG,QUALITATIVE URINE NEGATIVE (NEGATIVE)
[2018-01-07 05:31] VITALS: BP 112/75; PULSE 80
--- NOTE | 2018-01-08 11:04 | US ---
Date of service: 01/07/2018 PROCEDURE: OB Pelvic Ultrasound HISTORY: abdominal pain, vaginal spotting LMP: Unknown COMPARISON: Comparison is made with the previous study dated 10/31/2017 FINDINGS: UTERUS: Gestational sac: Single intrauterine gestation. Heart rate: 157 bpm. age (Ultrasound estimated): 15 weeks 3 days 1 week 1 day Paige-gestational hemorrhage: None. Date of delivery (Ultrasound estimated) : 06/28/2018 The placenta is at the posterior and fundal portion of the uterus. The amount of amniotic fluid is adequate. . CERVIX: Measures 3.9 cm. Long and closed. No cervical abnormality seen. RIGHT OVARY: The right ovary was not visualized. LEFT OVARY: The left ovary was not visualized. FREE FLUID: None. OTHER FINDINGS: None. IMPRESSION: Single intrauterine live with ultrasound estimated gestational age of 15 weeks 3 days 1 week 1 day. Estimated date of delivery by ultrasound is 06/28/2018. Preliminary report was submitted by virtual Radiology.
== END 2018-01-07 05:34 | disposition home or self-care (01) ==
LOC: C.ER 00:55
DX: O20.0 Threatened abortion (principal); O23.42 Unspecified infection of urinary tract in pregnancy, second trimester; Z3A.15 15 weeks gestation of pregnancy
CPT/HCPCS: 76815; 80048; 81001; 84702; 84703; 85025; 85610; 85730; 86850; 86900; 99284; J2792; J7030

== ENCOUNTER 2018-03-30 14:35 | Emergency (ER) | payer MEDICAID ==
[2018-03-03 18:58] VITALS: BMI 23.3
[2018-03-30 16:10] LABS: SQUAMOUS EPITHIAL 13 /hpf (0-5); URINE BACTERIA RARE (<OCC); URINE BILIRUBIN NEGATIVE (NEGATIVE); URINE BLOOD NEGATIVE (NEGATIVE); URINE CLARITY Hazy (Clear); URINE COLOR Yellow (YELLOW); URINE GLUCOSE (UA) NORMAL (Normal); URINE LEUKOCYTE ESTERASE 2+ Leu/uL (Negative); URINE PROTEIN NEGATIVE (NEGATIVE); URINE UROBILINOGEN NORMAL mg/dL (0.2-1.0)
[2018-03-30 21:35] VITALS: BP 93/57; PULSE 92; RESP 18; TEMP 98; O2SAT 100
--- NOTE | 2018-03-30 21:49 | OBHP ---
Datetime: 03/30/2018 16:24 IP Adm Impression: , intrauterine IP Chief Complaint Other: Abdominal Pain IP Admit Plan: Discharge home Admit Comment, IP Provider: cc: "Abdominal Pain" Patient is a 22 y/o who is currently at 27 weeks and 1 day gestational age. Patient's LMP was at 09/18/17. Patient's JULIANA is for 06/28/18 as per earliest Ultrasound at 15 weeks and 3 days gestat ion. She endorses movements. Subjectively, she claims that she has occasional contractions. No vaginal bleed. No LOF. Patient has RLQ abdominal pain that started last night at 8:30pm. Currently ra yg 5/10 on pain scale. Quality of abdominal pain is sharp and stabbing. Radiates to the vagina. Asso ciated with midline low back pain and nausea. Patient was taking tylenol for her pain. There was no a ssociated trauma or injury. Also has headache likely due to migraine. She denies fever, vomiting, cp, sob, dysuria. She takes vitamins and iron supplements for her care. She has a rupesh l movement twice a week, which she claims is normal for her. Patient does say she only drinks two sma ll water bottles a day. OBHx: multigravid. Previous was a girl at 39 weeks gestation in 2017 at [facility] [place]. Baby weight was 6 lb 3 oz. GynHx: menarche at age 12. Periods are regular every 28-30 days, duration of 7 days. She was posit jose for Chlamydia in 2017. Denies other STI history. No hx of fibroids. Previous ovarian cyst, no fur ther management. 1st pap smear was in February, pending results. PMHx: Anemia, Scoliosis, Sickle Cell Trait PSHx: none Meds: zofran, multivitamin, iron supplement Allergies: shellfish (throat closes up), NKDA SocialHx: no EtOH during , social drinker prior to . Social smoker prior to preg suzanne, since 17 years old. Significant second hand smoke exposure at home. Denies recreational drug u se. No occupation. Monogamous with FOB. Lives with mother. FamHx: mom (39 y/o) has breast cancer and h/o ovarian cyst; dad (48 y/o) has back pain; grandfathe r on paternal side has prostate cancer. Assessment: Patient is a 22 y/o who is currently at 27 weeks and 1 day gestational age. She presents f or RLQ abdominal pain. Patient's pain is likely related to round ligament pain. Plan: 1. Continue with tylenol for management of pain likely due to Round Ligament Pain 2. UA showed +LE, +wbc, possible UTI 3. Encourage increased PO fluid intake, 4-5 water bottles per day 4. Plan to discharge on antibiotics 5. Patient will follow up in [facility] clinic for her appointment in 1 week. Cyril Brooks DO, PGY-1 Attending Note: patient seen and evaluated by me with the resident. Cervical exam performed by me. I agree with the above as documented. Pelvic Type - PN: Adequate Extremities - PN: Normal Abdomen - PN: Normal Back - PN: Normal Breast - PN: Not Done Lungs - PN: Normal Heart - PN: Normal Thyroid - PN: Not Done Neurologic - PN: Normal HEENT - PN: Normal General - PN: Normal FHR - Baseline A Provider: 145 Comments, ACOG Physical Exam: Gen: NAD. AAOx3. Patient is resting comfortably. Cardio: RRR. Normal s1/s2. No murmurs. Lungs: CTA bilaterally. No w/r/r. Abdomen: Gravid abdomen. Fundus height is at 24 cm. No rebound tenderness or guarding. Negative CV A tenderness. No suprapubic tenderness. Lower Ext: no pitting edema. No lower extremity swelling. No calf tenderness. Negative Alexander sign. Gestation - Est Wks by US: 27.1 EGA AdmitDate IP: 27.1 Vital Signs Provider: Reviewed; Within Normal Limits IP Chief Complaint: Other NICHD Variability Prov Fetus A: Moderate 6-25bpm NICHD Decel Fetus A IP Provider: None Dilatation, Provider: 0 Effacement, Provider: 0 Genitourinary Exam: Normal DTRs - PN: Normal
== END 2018-03-30 17:00 | disposition home or self-care (01) ==
LOC: C.EROB 14:35
DX: O26.892 Other specified pregnancy related conditions, second trimester (principal); R10.9 Unspecified abdominal pain; Z3A.27 27 weeks gestation of pregnancy

== ENCOUNTER 2018-09-03 10:32 | Emergency (ER) | payer MEDICAID ==
[2018-09-03 10:32] VITALS: BMI 23.3
[2018-09-03] MEDS ORDERED: Sodium Chloride 0.9% 1,000 ML IV STA (11:32)
[2018-09-03] MEDS ORDERED: Barium Sulfate Susp 2.1% w/v, 2.0% w/w 450 mL Bottle PO STA (11:33)
[2018-09-03 11:58] LABS: BASO % 0.5 % (0.0-2.0); EOS # 0.2 K/uL (0.0-0.7); EOS % 3.3 % (0.0-4.0); HEMOGLOBIN 10.3 g/dL (11.0-16.0); LYMPH # 1.4 K/uL (1.0-4.3); LYMPH % 24.3 % (20.0-40.0); MEAN CORPUSCULAR HEMOGLOBIN 25.1 pg (27.0-31.0); MEAN CORPUSCULAR HGB CONC 32.6 g/dL (33.0-37.0); MEAN PLATELET VOLUME 9.7 fL (7.2-11.7); MONO # 0.3 K/uL (0.0-0.8); NEUT # 3.9 K/uL (1.8-7.0); NEUT % 66.9 % (50.0-75.0); RBC 4.12 Mil/uL (3.80-5.20); RED CELL DISTRIBUTION WIDTH 16.7 % (11.5-14.5); WHITE BLOOD COUNT 5.8 K/uL (4.8-10.8)
[2018-09-03 11:59] LABS: HCG,QUALITATIVE URINE NEGATIVE (NEGATIVE)
[2018-09-03] MEDS ORDERED: Iohexol 240 (50 ml) ONE (11:59)
[2018-09-03 12:00] LABS: SQUAMOUS EPITHIAL 4 /hpf (0-5); URINE BACTERIA RARE (<OCC); URINE BILIRUBIN NEGATIVE (NEGATIVE); URINE BLOOD NEGATIVE (NEGATIVE); URINE CLARITY Clear (Clear); URINE COLOR Yellow (YELLOW); URINE GLUCOSE (UA) NORMAL (Normal); URINE LEUKOCYTE ESTERASE TRACE Leu/uL (Negative); URINE PROTEIN NEGATIVE (NEGATIVE); URINE UROBILINOGEN NORMAL mg/dL (0.2-1.0)
[2018-09-03 12:09] LABS: ALB/GLOB RATIO 1.3 (1.0-2.1); ALT/SGPT 20 U/L (9-52); AST/SGOT 19 U/L (14-36); BLOOD UREA NITROGEN 11 mg/dL (7-17); CALCIUM 8.6 mg/dl (8.6-10.4); GFR NON-AFRICAN AMERICAN > 60; LIPASE 122 U/L (23-300)
[2018-09-03] MEDS ORDERED: Barium Sulfate Susp 2.1% w/v, 2.0% w/w 450 mL Bottle PO ONE (12:14)
--- NOTE | 2018-09-03 12:18 | C.PDOC ---
History Of Present Illness 22 y/o female with no PMHx presents to the ED complaining of a sharp pain in her RLQ, onset 1 week ago. Pain is radiating to right flank. No associated fevers or chills. Otherwise she denies any vomiting, diarrhea, urinary complaints, vaginal bleeding, chest pain, or SOB. Of note patient is 2 months post-. <Yelitza Dahl - Last Filed: 09/03/18 18:59> History Per: Patient History/Exam Limitations: no limitations Onset/Duration Of Symptoms: Days Current Symptoms Are (Timing): Still Present Location Of Pain/Discomfort: RLQ Radiation Of Pain To:: Flank Quality Of Discomfort: "Pain" <Yelitza Dahl - Last Filed: 09/03/18 18:59> <Ally Couch - Last Filed: 09/03/18 20:11> Time Seen by Provider: 09/03/18 10:56 Chief Complaint (Nursing): Abdominal Pain Past Medical History Reviewed: Historical Data, Nursing Documentation, Vital Signs Vital Signs: Last Vital Signs Temp 98.4 F 09/03/18 10:36 Pulse 94 H 09/03/18 10:36 Resp 18 09/03/18 10:36 BP 130/85 09/03/18 10:36 Pulse Ox 100 09/03/18 10:36 - Medical History PMH: Anemia, Pneumonia Other PMH: Scoliosis Surgical History: No Surg Hx Family History: States: Unknown Family Hx - Social History Hx Tobacco Use: Yes (former) Hx Alcohol Use: Yes Hx Substance Use: Yes - Immunization History Hx Tetanus Toxoid Vaccination: Yes Hx Influenza Vaccination: Yes Hx Pneumococcal Vaccination: No <Yelitza Dahl - Last Filed: 09/03/18 18:59> Vital Signs: Last Vital Signs Temp 97.6 F 09/03/18 18:19 Pulse 64 09/03/18 19:15 Resp 16 09/03/18 19:15 BP 132/82 09/03/18 19:15 Pulse Ox 98 09/03/18 19:15 <Ally Couch - Last Filed: 09/03/18 20:11> Review Of Systems Except As Marked, All Systems Reviewed And Found Negative. Constitutional: Negative for: Fever, Chills, Sweats Cardiovascular: Negative for: Chest Pain Respiratory: Negative for: Cough, Shortness of Breath Gastrointestinal: Positive for: Abdominal Pain (RLQ). Negative for: Vomiting, Diarrhea, Constipation Genitourinary: Negative for: Dysuria, Frequency, Hematuria, Vaginal Bleeding Musculoskeletal: Negative for: Back Pain Neurological: Negative for: Weakness, Numbness <Yelitza Dahl - Last Filed: 09/03/18 18:59> Physical Exam - Physical Exam Appears: Non-toxic, In Acute Distress (mild distress secondary to pain) Skin: Normal Color, Warm, Dry Head: Atraumatic, Normacephalic Eye(s): bilateral: Normal Inspection, PERRL, EOMI Oral Mucosa: Moist Neck: Normal ROM Chest: Symmetrical Cardiovascular: Rhythm Regular, No Murmur Respiratory: Normal Breath Sounds, No Accessory Muscle Use Gastrointestinal/Abdominal: Soft, Tenderness (exquisite tenderness to RLQ), No Guarding, No Rebound Back: No CVA Tenderness, Paraspinal Tenderness (Slight tenderness to right mid back) Extremity: Bilateral: Atraumatic, Normal Color And Temperature, Normal ROM Neurological/Psych: Oriented x3, Normal Speech, Normal Cranial Nerves Gait: Steady <Yelitza Dahl - Last Filed: 09/03/18 18:59> ED Course And Treatment - Laboratory Results Result Diagrams: 09/03/18 11:51 09/03/18 11:51 Lab Results: Total Bilirubin 0.3 mg/dL (0.2-1.3) 09/03/18 11:51 AST 19 U/L (14-36) 09/03/18 11:51 ALT 20 U/L (9-52) 09/03/18 11:51 Alkaline Phosphatase 72 U/L (38-126) 09/03/18 11:51 Total Protein 7.0 g/dL (6.3-8.3) 09/03/18 11:51 Albumin 4.0 g/dL (3.5-5.0) 09/03/18 11:51 Globulin 3.0 gm/dL (2.2-3.9) 09/03/18 11:51 Albumin/Globulin Ratio 1.3 (1.0-2.1) 09/03/18 11:51 Lipase 122 U/L (23-300) 09/03/18 11:51 Urine Color Yellow (YELLOW) 09/03/18 11:51 Urine Clarity Clear (Clear) 09/03/18 11:51 Urine pH 6.0 (5.0-8.0) 09/03/18 11:51 Ur Specific [place] 1.010 (1.003-1.030) 09/03/18 11:51 Urine Protein Negative mg/dL (NEGATIVE) 09/03/18 11:51 Urine Glucose (UA) Normal mg/dL (Normal) 09/03/18 11:51 Urine Ketones Negative mg/dL (NEGATIVE) 09/03/18 11:51 Urine Blood Negative (NEGATIVE) 09/03/18 11:51 Urine Nitrate Negative (NEGATIVE) 09/03/18 11:51 Urine Bilirubin Negative (NEGATIVE) 09/03/18 11:51 Urine Urobilinogen Normal mg/dL (0.2-1.0) 09/03/18 11:51 Ur Leukocyte Esterase Trace Christiano/uL (Negative) 09/03/18 11:51 Urine WBC (Auto) 3 /hpf (0-5) 09/03/18 11:51 Ur Squamous Epith Cells 4 /hpf (0-5) 09/03/18 11:51 Urine Bacteria Rare (<OCC) 09/03/18 11:51 Urine HCG, Qual Negative (NEGATIVE) 09/03/18 11:51 Urine HCG, Qual Negative (NEGATIVE) 09/03/18 11:51 Urine POC: Negative O2 Sat by Pulse Oximetry: 100 (on RA) Pulse Ox Interpretation: Normal - CT Scan/US CT Abd/Pelvis Other Rad Studies (CT/US): Read By Radiologist, Radiology Report Reviewed CT/US Interpretation: Accession No. : [id number]. Patient Name / ID : MONAE CHA / [id number]. Exam Date : 09/03/2018 15:51:45 ( Approved ). Study Comment : Sex / Age : F / 22Y. Creator : Trudy Sims. Dictator : Horacio Sullivan MD. Paper Products Printer : Ultrasound Spec : Horacio Sullivan MD. Approver2 : Report Date : 09/03/2018 15:59:29. My Comment : . Date of service: 09/03/2018. PROCEDURE: CT Abdomen and Pelvis without intravenous contrast. HISTORY: RLQ abd pain. COMPARISON: 02/04/2017. TECHNIQUE: Without contrast.. Contrast dose: 0. Radiation dose: Total exam DLP = 373.77 mGy-cm. This CT exam was performed using one or more of the following dose reduction techniques: Automated exposure control, adjustment of the mA and/or kV according to patient size, and/or use of iterative reconstruction technique. FINDINGS: LOWER THORAX: Unremarkable. LIVER: Unremarkable. No gross lesion or ductal dilatation. GALLBLADDER AND BILE DUCTS: Partially contracted. No calcified gallstones. PANCREAS: Unremarkable. No gross lesion or ductal dilatation. SPLEEN: Unremarkable. ADRENALS: Unremarkable. No mass. KIDNEYS AND URETERS: Unremarkable. No hydronephrosis. No solid mass. VASCULATURE: Unremarkable. No aortic aneurysm. No aortic atherosclerotic calcification or mural plaque present. BOWEL: Unremarkable. No obstruction. No gross mural thickening. APPENDIX: Unremarkable. Normal appendix. PERITONEUM: Unremarkable. No free fluid. No free air. LYMPH NODES: Unremarkable. No enlarged lymph nodes. BLADDER: Unremarkable. REPRODUCTIVE: Normal uterus. BONES: No acute fractur e. OTHER FINDINGS: None. IMPRESSION: Unremarkable abdominal/pelvic CT examination. No evidence of acute appendicitis. Progress Note: Blood work and urine sent to the lab for analysis. Ordered CT Abd/Pelvis with PO contrast. Patient given 1L IV fluids and 4 mg IV Zofran. Labs and imaging reviewed - CT shows no evidence of acute appendicitis. Patient continues to complain of pain on re-evaluation. Will obtain Pelvic/Transvaginal US. <Yelitza Dahl - Last Filed: 09/03/18 18:59> - Laboratory Results Result Diagrams: 09/03/18 11:51 09/03/18 11:51 Lab Results: Total Bilirubin 0.3 mg/dL (0.2-1.3) 09/03/18 11:51 AST 19 U/L (14-36) 09/03/18 11:51 ALT 20 U/L (9-52) 09/03/18 11:51 Alkaline Phosphatase 72 U/L (38-126) 09/03/18 11:51 Total Protein 7.0 g/dL (6.3-8.3) 09/03/18 11:51 Albumin 4.0 g/dL (3.5-5.0) 09/03/18 11:51 Globulin 3.0 gm/dL (2.2-3.9) 09/03/18 11:51 Albumin/Globulin Ratio 1.3 (1.0-2.1) 09/03/18 11:51 Lipase 122 U/L (23-300) 09/03/18 11:51 Urine Color Yellow (YELLOW) 09/03/18 11:51 Urine Clarity Clear (Clear) 09/03/18 11:51 Urine pH 6.0 (5.0-8.0) 09/03/18 11:51 Ur Specific [place] 1.010 (1.003-1.030) 09/03/18 11:51 Urine Protein Negative mg/dL (NEGATIVE) 09/03/18 11:51 Urine Glucose (UA) Normal mg/dL (Normal) 09/03/18 11:51 Urine Ketones Negative mg/dL (NEGATIVE) 09/03/18 11:51 Urine Blood Negative (NEGATIVE) 09/03/18 11:51 Urine Nitrate Negative (NEGATIVE) 09/03/18 11:51 Urine Bilirubin Negative (NEGATIVE) 09/03/18 11:51 Urine Urobilinogen Normal mg/dL (0.2-1.0) 09/03/18 11:51 Ur Leukocyte Esterase Trace Christiano/uL (Negative) 09/03/18 11:51 Urine WBC (Auto) 3 /hpf (0-5) 09/03/18 11:51 Ur Squamous Epith Cells 4 /hpf (0-5) 09/03/18 11:51 Urine Bacteria Rare (<OCC) 09/03/18 11:51 Urine HCG, Qual Negative (NEGATIVE) 09/03/18 11:51 Urine HCG, Qual Negative (NEGATIVE) 09/03/18 11:51 - CT Scan/US Pelvic/Transvaginal US Other Rad Studies (CT/US): Read By Radiologist, Radiology Report Reviewed CT/US Interpretation: History. RLQ pain , negative CT , post 2 months. Comparison. None available. Technique. TA/TV. Findings. Uterus. Measures 6.86 x 4.18 x 4.63 cm. Normal in size and appearance. No fibroid or other mass lesion seen. Endometrium. Measures 7 mm in diameter. Unremarkable. Right ovary. Measures 2.29 x 1.4 x 2.33 cm. No solid mass. Normal flow. Left ovary. Measures 3.13 x 2.48 x 2.95 cm. No solid mass. Normal flow. Cyst measures 1.73 x 1.32 x 1.65 cm. Free fluid. Endometrial trace free fluid is seen measuring 0.25 cm. Other Findings. None. Impression. 1. Left ovarian cyst. 2. Endometrial trace free fluid is seen measuring 0.25 cm. <Ally Couch - Last Filed: 09/03/18 20:11> Disposition - Disposition Disposition Time: 18:59 <Yelitza Dahl - Last Filed: 09/03/18 18:59> - Disposition Disposition Time: 20:11 - POA Present On Arrival: None <Ally Couch - Last Filed: 09/03/18 20:11> - Disposition Referrals: [facility] [Outside] [facility] [Outside] Disposition: HOME/ ROUTINE Condition: STABLE Additional Instructions: SEMAJ LICONA, thank you for letting us take care of you today. You were treated for RT SIDE ABD PAIN. The emergency medical care you received today was directed at your acute symptoms. If you were prescribed any medication, please fill it and take as directed. It may take several days for your symptoms to resolve. Return to the Emergency Department if your symptoms worsen, do not improve, or if you have any other problems. Please contact your doctor or call one of the physicians/clinics you have been referred to that are listed on the Patient Visit Information form that is included in your discharge packet. Bring any paperwork you were given at discharge with you along with any medications you are taking to your follow up visit. Our treatment cannot replace ongoing medical care by a primary care provider outside of the emergency department. Thank you for allowing the [facility] team to be part of your care today. If you had an X-Ray or CT scan: A Radiologist will review the ED reading if any change in treatment is needed we will contact you. If you had a blood, urine, or wound culture: It will take several days for the results, if any change in treatment is needed we will contact you. If you had an STI test: It will take 48 hours for the results. Please call after 1 week if you have not heard back. Instructions: Acute Abdomen (Belly Pain), Adult (DC) Forms: [facility] (Paraguayan), General Discharge Instructions - Clinical Impression Clinical Impression: Abdominal pain - PA / SELF PAY SPECIALIST / Resident Statement MD/DO has reviewed & agrees with the documentation as recorded. - Scribe Statement The provider has reviewed the documentation as recorded by the Scribe Liz Sepulveda All medical record entries made by the Scribe were at my direction and personall y dictated by me. I have reviewed the chart and agree that the record accurately reflects my personal performance of the history, physical exam, medical decision making, and the department course for this patient. I have also personally directed, reviewed, and agree with the discharge instructions and disposition. <Yelitza Dahl - Last Filed: 09/03/18 18:59> Physician Patient Turnover Patient Signed Over To: Ally Couch Handoff Comments: US of pelvic area, dispo <Yelitza Dahl - Last Filed: 09/03/18 18:59>
[2018-09-03] MEDS ORDERED: Iodixanol 320 mg/ml 150 ml Bottle IV ONE (15:09)
--- NOTE | 2018-09-03 16:47 | CT ---
Date of service: 09/03/2018 PROCEDURE: CT Abdomen and Pelvis without intravenous contrast HISTORY: RLQ abd pain COMPARISON: 02/04/2017 TECHNIQUE: Without contrast.. Contrast dose: 0 Radiation dose: Total exam DLP = 373.77 mGy-cm. This CT exam was performed using one or more of the following dose reduction techniques: Automated exposure control, adjustment of the mA and/or kV according to patient size, and/or use of iterative reconstruction technique. FINDINGS: LOWER THORAX: Unremarkable. LIVER: Unremarkable. No gross lesion or ductal dilatation. GALLBLADDER AND BILE DUCTS: Partially contracted. No calcified gallstones. PANCREAS: Unremarkable. No gross lesion or ductal dilatation. SPLEEN: Unremarkable. ADRENALS: Unremarkable. No mass. KIDNEYS AND URETERS: Unremarkable. No hydronephrosis. No solid mass. VASCULATURE: Unremarkable. No aortic aneurysm. No aortic atherosclerotic calcification or mural plaque present. BOWEL: Unremarkable. No obstruction. No gross mural thickening. APPENDIX: Unremarkable. Normal appendix. PERITONEUM: Unremarkable. No free fluid. No free air. LYMPH NODES: Unremarkable. No enlarged lymph nodes. BLADDER: Unremarkable. REPRODUCTIVE: Normal uterus BONES: No acute fracture. OTHER FINDINGS: None. IMPRESSION: Unremarkable abdominal/pelvic CT examination. No evidence of acute appendicitis.
[2018-09-03 20:19] VITALS: BP 140/62; PULSE 76; RESP 18; TEMP 98.4; O2SAT 99
--- NOTE | 2018-09-04 10:17 | US ---
Date of service: 09/03/2018 HISTORY: RLQ pain, neg CT, post 2 months COMPARISON: None available. TECHNIQUE: Transabdominal and transvaginal pelvic ultrasound was. FINDINGS: UTERUS: Measures 6.8 x 4.1 x 4.6 cm. Anteverted, normal in size and appearance. No fibroid or other mass lesion seen. ENDOMETRIUM: Measures 7.0 mm in diameter. There is a small amount of fluid in the superior endometrial canal, otherwise normal in appearance. CERVIX: No cervical abnormality identified. RIGHT OVARY: Measures 2.2 x 1.4 x 2.3 cm. No solid mass. Normal flow. LEFT OVARY: Measures 3.1 x 2.4 x 2.9 cm. No solid mass. Normal flow. There is a 1.1 x 1.3 x 1.6 cm simple cyst. FREE FLUID: No significant free fluid noted. OTHER FINDINGS: None. IMPRESSION: 1. Small amount of fluid in the superior endometrial canal. 2. 1.6 cm simple cyst in the left ovary A preliminary report was provided by [employer].
== END 2018-09-03 20:19 | disposition home or self-care (01) ==
LOC: C.ER 10:32
DX: R10.9 Unspecified abdominal pain (principal); D64.9 Anemia, unspecified
CPT/HCPCS: 74176; 76830; 76856; 80053; 81001; 81025; 83690; 84703; 85025; 96361; 96374; 99285; J2405; J7030; Q9967

== ENCOUNTER 2018-10-23 12:35 | Emergency (ER) | payer MEDICAID ==
[2018-10-23 12:35] VITALS: BMI 23.3
[2018-10-23 12:54] VITALS: O2SAT 100
[2018-10-23] MEDS ORDERED: Sodium Chloride 0.9% 1,000 ML IV ONE (13:09)
--- NOTE | 2018-10-23 13:24 | C.PDOC ---
History Of Present Illness 23-year-old female, whose past medical history includes sickle cell trait, presents to the ED for evaluation of left adnexal pain for 10 days. Patient states she was told that she has a cyst on her left side. Patient reports nausea and states she missed her period. Patient denies fever, chills, vomiting, or other complaints at this time. Patient's LMP was 09/13/18. Time Seen by Provider: 10/23/18 13:03 Chief Complaint (Nursing): Abdominal Pain History Per: Patient History/Exam Limitations: no limitations Onset/Duration Of Symptoms: Days (10) Current Symptoms Are (Timing): Still Present Radiation Of Pain To:: None Quality Of Discomfort: "Pain" Associated Symptoms: denies: Fever, Chills Additional History Per: Patient Last Menstral Period: 09/13/2018 Past Medical History Reviewed: Historical Data, Nursing Documentation, Vital Signs Vital Signs: Last Vital Signs Temp 99 F 10/23/18 12:50 Pulse 85 10/23/18 12:50 Resp 20 10/23/18 12:50 BP 130/83 10/23/18 12:50 Pulse Ox 100 10/23/18 12:50 Primary Care Provider: FAMILY PROVIDER,NO - Medical History PMH: Anemia, Pneumonia Surgical History: No Surg Hx Family History: States: Unknown Family Hx - Social History Hx Tobacco Use: Yes (former) Hx Alcohol Use: No Hx Substance Use: No - Immunization History Hx Tetanus Toxoid Vaccination: Yes Hx Influenza Vaccination: Yes Hx Pneumococcal Vaccination: No Review Of Systems Constitutional: Negative for: Fever, Chills Gastrointestinal: Positive for: Nausea. Negative for: Vomiting Musculoskeletal: Positive for: Other (left adnexal pain ) Physical Exam - Physical Exam Appears: Non-toxic, No Acute Distress Skin: Normal Color, Warm, Dry Head: Atraumatic, Normacephalic Eye(s): bilateral: Normal Inspection Oral Mucosa: Moist Neck: Supple Chest: Symmetrical, No Deformity, No Tenderness Cardiovascular: Rhythm Regular, No Murmur Respiratory: Normal Breath Sounds, No Rales, No Rhonchi, No Wheezing Gastrointestinal/Abdominal: Soft, No Tenderness, No Guarding, No Rebound Pelvic: Adnexal Tenderness (left) Extremity: Normal ROM, Capillary Refill (less than 2 seconds ) Neurological/Psych: Oriented x3, Normal Speech, Normal Cognition ED Course And Treatment - Laboratory Results Result Diagrams: 10/23/18 14:31 10/23/18 14:31 O2 Sat by Pulse Oximetry: 100 (on RA) Pulse Ox Interpretation: Normal Against Medical Advice - AMA Patient Left Against Medical Advice: The patient declines admission to the hospital and wishes to leave the Emergency Department. This action is against my medical advice. This decision was made with informed refusal. The patient was told that admission to the hospital is necessary. Explanation of the reasons why were discussed. The risks of leaving were explained to the patient and include, but are not limited to, worsening of known or currently unknown conditions, permanent disability and from undiagnosed or untreated conditions. The patient has the capacity to make this informed decision and understands my explanation of the current medical problem and risks of leaving. The patient voluntarily accepts these risks and signed an AMA form documenting our conversation. The patient was given the opportunity to ask questions and reconsider. The patient was encouraged to return to the Emergency Department at any time for further care. Medical Decision Making Medical Decision Making: ro pelvic pahtology labs imaging pending Progress: Bloodwork,urinalysis and transvaginal ultrasound ordered and reviewed. Tylenol PO and IV Fluids given. labs neg. ua with pos blood pain now llq. asked to eval with ct to r/o abdominal/kdiney stone. pt refuses. states will return with wrosening. advised of risk signs ama. noted large cyst on right all pain on left. adivse of findings need for driver salesman f/u outpt. Disposition - Disposition Referrals: [facility] [Outside] [facility] [Outside] Disposition: AGAINST MEDICAL ADVICE Disposition Time: 15:00 Condition: STABLE Additional Instructions: return to er with worsening. Instructions: Acute Abdomen (Belly Pain), Acute Pelvic Pain, Leaving Against Medical Advice Forms: [employer] (Kenyan) - Clinical Impression Clinical Impression: Abdominal pain, Ovarian cyst - Scribe Statement The provider has reviewed the documentation as recorded by the Scribe (Kinza Bolanos) Provider Attestation: All medical record entries made by the Scribe were at my direction and personally dictated by me. I have reviewed the chart and agree that the record accurately reflects my personal performance of the history, physical exam, medical decision making, and the department course for this patient. I have also personally directed, reviewed, and agree with the discharge instructions and disposition.
[2018-10-23 13:48] LABS: HCG,QUALITATIVE URINE NEGATIVE (NEGATIVE)
[2018-10-23 13:55] LABS: SQUAMOUS EPITHIAL 2 /hpf (0-5); URINE BILIRUBIN NEGATIVE (NEGATIVE); URINE BLOOD 2+ (NEGATIVE); URINE CLARITY Clear (Clear); URINE COLOR Yellow (YELLOW); URINE GLUCOSE (UA) NORMAL (Normal); URINE LEUKOCYTE ESTERASE NEG Leu/uL (Negative); URINE PROTEIN NEGATIVE (NEGATIVE); URINE UROBILINOGEN NORMAL mg/dL (0.2-1.0)
--- NOTE | 2018-10-23 14:20 | US ---
Date of service: 10/23/2018 HISTORY: left sided pain COMPARISON: Pelvic/transvaginal ultrasound performed 09/03/18 TECHNIQUE: Real-time transabdominal pelvic ultrasound was performed. In addition a transvaginal pelvic ultrasound was necessary to better depict pelvic anatomy. FINDINGS: UTERUS: Measures 9.1 x 3.6 x 4.9 cm. Anteverted. ENDOMETRIUM: Measures 4 mm in diameter. CERVIX: No cervical abnormality identified. RIGHT OVARY: Measures 6.1 x 5.1 x 5.7 cm. Blood flow is demonstrated. 5.2 x 4.5 x 5.3 cm cyst. LEFT OVARY: Measures 3.0 x 1.9 x 2.8 cm. Blood flow is demonstrated. FREE FLUID: Small pelvic free fluid noted. OTHER FINDINGS: None. IMPRESSION: 5.2 x 4.5 x 5.3 cm right ovarian cyst. Recommend 6 week ultrasound follow-up to assess for complete resolution. Small pelvic free fluid.
[2018-10-23 14:34] LABS: BASO % 0.6 % (0.0-2.0); EOS # 0.2 K/uL (0.0-0.7); EOS % 3.3 % (0.0-4.0); HEMOGLOBIN 10.8 g/dL (11.0-16.0); LYMPH # 1.9 K/uL (1.0-4.3); LYMPH % 26.6 % (20.0-40.0); MEAN CORPUSCULAR HEMOGLOBIN 25.3 pg (27.0-31.0); MEAN CORPUSCULAR HGB CONC 32.4 g/dL (33.0-37.0); MEAN PLATELET VOLUME 9.7 fL (7.2-11.7); MONO # 0.5 K/uL (0.0-0.8); MONO % 7.3 % (0.0-10.0); NEUT # 4.5 K/uL (1.8-7.0); NEUT % 62.2 % (50.0-75.0); NRBC % 0.1 % (0.0-2.0); RBC 4.26 Mil/uL (3.80-5.20); RED CELL DISTRIBUTION WIDTH 16.4 % (11.5-14.5); WHITE BLOOD COUNT 7.3 K/uL (4.8-10.8)
[2018-10-23 14:44] LABS: INR 1.1; PARTIAL THROMBOPLASTIN TIME 32.4 SECONDS (21-34); PROTHROMBIN TIME 11.9 SECONDS (9.7-12.2)
[2018-10-23 14:46] LABS: ALB/GLOB RATIO 1.5 (1.0-2.1); ALBUMIN 4.3 g/dL (3.5-5.0); ALT/SGPT 13 U/L (9-52); AST/SGOT 19 U/L (14-36); BLOOD UREA NITROGEN 16 mg/dL (7-17); CALCIUM 8.5 mg/dl (8.6-10.4); GFR NON-AFRICAN AMERICAN > 60; LIPASE 98 U/L (23-300)
[2018-10-23 15:16] VITALS: BP 141/95; PULSE 75; RESP 18; TEMP 98.3
== END 2018-10-23 15:19 | disposition left against medical advice (07) ==
LOC: C.ER 12:35
DX: N83.201 Unspecified ovarian cyst, right side (principal); D57.3 Sickle-cell trait; Z87.891 Personal history of nicotine dependence
CPT/HCPCS: 76830; 76856; 80053; 81001; 83690; 84703; 85025; 85610; 85730; 96360; 99285; J7030